=== PATIENT | male | born 1945 | race Caucasian/White ===

== ENCOUNTER 2017-08-22 06:25 | Emergency (ER) | payer OTHER ==
[~2017-08-22] VITALS: Ht 170.2 cm; Wt 153.2 kg
[2017-08-22 06:30] VITALS: BP 142/87; PULSE 81; RESP 16; TEMP 97.7; O2SAT 99
[2017-08-22] MEDS ORDERED: LISI10TA3 PO (06:36)
[2017-08-22] MEDS ORDERED: LIDOCAINE HCL 1% 50 ML VIAL INFIL ONE (07:30)
[2017-08-22] MEDS ORDERED: SULFAMETHOXAZOLE-TRIMETHOPRIM DS 800-160 MG TAB PO ONE (07:30)
[2017-08-22] MEDS ORDERED: LIDOCAINE HCL 2% 50 ML VIAL ONE (07:38)
[2017-08-22] MEDS ORDERED: BACT800T5 PO (07:44)
[2017-08-22] MEDS ORDERED: IBUP-232 PO (07:44)
[2017-08-22] MEDS ORDERED: LIDOCAINE HCL 2% 50 ML VIAL INFIL ONE (07:45)
--- NOTE | 2017-08-22 07:58 | PD ---
HPI Chief Complaint: Skin Problem Time Seen by Provider: 07:25 Travel History International Travel<30 days: No Contact w/Intl Traveler<30days: No Traveled to known affect area: No History of Present Illness HPI pt is a 71 y.o male who presents to the ED with a cc of spider bite on L index finger. Pt states that about 4 days ago he noticed a bite on his L index finger. Pt kept on scratching the area because of moderate itching. The following day redness and edema around around the area of "bite" started. that night he noticed a tactile fever that was not associated with n/v. The day after purulent fluid drained from the center of the "area of redness". pt reports previous hx of cellulitis about a year ago that started after what he perceived to be an inset bite. Denies any decrease in ROM of L index finger or decrease sensation. Also denies hx of diabetes. Modifying Factors: None Associated Signs & Symptoms: Left index finger infection, possible insect bite Risk Factors: None History Past Medical History Tetanus Vaccination: < 5 Years Influenza Vaccination: No Past Surgical History Surgical History: No Previous Surgery Social History Alcohol Use: No Tobacco Use: No Allergies-Medications (Allergen,Severity, Reaction): Coded Allergies: No Known Drug Allergies (Verified Allergy, Unknown, 08/22/17) Reported Meds & Prescriptions Reported Meds & Active Scripts Active Ibuprofen 600 Mg Tab 600 Mg PO Q6H PRN Bactrim DS (Sulfamethoxazole-Trimethoprim) 800-160 Mg Tab 1 Tab PO BID Reported Lisinopril 10 Mg Tab 10 Mg PO DAILY Review of Systems Except as stated in HPI: all other systems reviewed are Neg Physical Exam Narrative GENERAL: Well-developed elderly white male patient currently in mild distress. Awake and oriented 3. SKIN: Warm and dry. there is a 2/5 cm area of erythema with induration. there is mild serosanguineous fluid at the center of the wound. EYES: Pupils equal and round. No scleral icterus. No injection or drainage. ENT: No nasal bleeding or discharge. Mucous membranes pink and moist. NECK: Trachea midline. No JVD. CARDIOVASCULAR: Regular rate and rhythm. RESPIRATORY: No accessory muscle use. Clear to auscultation. Breath sounds equal bilaterally. GASTROINTESTINAL: Abdomen soft, non-tender, nondistended. Hepatic and splenic margins not palpable. MUSCULOSKELETAL: Extremities without clubbing, cyanosis, or edema. No obvious deformities. NEUROLOGICAL: Awake and alert. No obvious cranial nerve deficits. Motor grossly within normal limits. Five out of 5 muscle strength in the arms and legs. Normal speech. PSYCHIATRIC: Appropriate mood and affect; insight and judgment normal. Data Data Last Documented VS Vital Signs Date Time Temp Pulse Resp B/P (MAP) Pulse Ox O2 Delivery O2 Flow Rate FiO2 08/22/17 06:30 97.7 81 16 142/87 (105) 99 Orders Orders Sulfamet-Trimeth Ds 800-160 Mg (Bactrim (08/22/17 07:30) Lidocaine 1% Inj (50 Ml) (Xylocaine 1% I (08/22/17 07:30) Lidocaine 2% Inj (Xylocaine 2% Inj) (08/22/17 07:45) Lidocaine 2% Inj (Xylocaine 2% Inj) (08/22/17 07:38) Ed Discharge Order (08/22/17 07:45) MDM Medical Decision Making Medical Screen Exam Complete: Yes Emergency Medical Condition: Yes Differential Diagnosis Finger cellulitis versus abscess versus paronychia versus tenosynovitis Narrative Course On exam, there does not appear to be enough fluctuance, mostly just small amount of serosanguineous fluid drainage, and finger cellulitis. No signs of tenosynovitis, no tenderness on flexion and extension, no fullness in the flexor compartment. A small incision was made at area where there is already a opening where serosanguineous fluid was draining, no significant amount of pus was drained from this area. At this point, patient was given wound care instruction and antibiotics p.o. He should return tomorrow for wound check. Area of cellulitis was marked off. Plan was discussed with him and he states understanding. Procedures Procedure Narrative fter the risks and benefits were discussed the following procedure was performed : INCISION AND DRAINAGE OF ABSCESS: The area was prepped and was sterilely draped. A subcutaneous wheal of [2] % Lidocaine with a total number [0.5] mL was used to anesthetize the area. The area was properly anesthetized. scalpel was used to make a [0.5] -cm incision across the area of the cellulitis. Sterile dressing applied. Diagnosis Primary Impression: Cellulitis, finger Med/Other Pt SpecificInfo: Prescription(s) given Scripts Ibuprofen (Ibuprofen) 600 Mg Tab 600 MG PO Q6H Y for Pain/Inflammation, #20 TAB 0 Refills Prov: George Altamirano MD 08/22/17 Sulfamethoxazole-Trimethoprim (Bactrim DS) 800-160 Mg Tab 1 TAB PO BID for Infection, #14 TAB 0 Refills Prov: George Altamirano MD 08/22/17 Disposition: 01 DISCHARGE HOME Condition: Stable George Altamirano MD August 22, 2017 07:58
== END 2017-08-22 07:57 | disposition home or self-care (01) ==
LOC: NEPE 06:25
DX: L03.012 Cellulitis of left finger (principal); R50.9 Fever, unspecified
CPT/HCPCS: 10060

== ENCOUNTER 2017-08-23 06:56 | Emergency (ER) | payer OTHER ==
[~2017-08-23 06:56] MED LIST: BACT800T5 PO; IBUP-232 PO; LISI10TA3 PO
[2017-08-23 07:16] VITALS: BP 133/63; PULSE 81; RESP 16; TEMP 98; O2SAT 98
--- NOTE | 2017-08-23 07:35 | PD ---
HPI Chief Complaint: Wound/Suture/Staple Re-Check Time Seen by Provider: 07:25 Travel History International Travel<30 days: No Contact w/Intl Traveler<30days: No Traveled to known affect area: No History of Present Illness HPI Patient is a 71 year old male who comes in for a recheck of his finger. He was seen yesterday for what he believed is a spider bite to his left index finger. There was a small area that was lanced and he was started on antibiotics. He says he feels like it is improving. Some of the redness has gone down and he says the finger is less "stiff." He denies any other complaints. Severity is mild. PFSH Past Medical History Cardiovascular Problems: Yes (HTN) Hypertension: Yes Influenza Vaccination: Yes Past Surgical History Surgical History: No Previous Surgery Social History Alcohol Use: No Tobacco Use: No Substance Use: No Allergies-Medications (Allergen,Severity, Reaction): Coded Allergies: No Known Drug Allergies (Verified Allergy, Unknown, 08/22/17) Reported Meds & Prescriptions Reported Meds & Active Scripts Active Ibuprofen 600 Mg Tab 600 Mg PO Q6H PRN Bactrim DS (Sulfamethoxazole-Trimethoprim) 800-160 Mg Tab 1 Tab PO BID Reported Lisinopril 10 Mg Tab 10 Mg PO DAILY Review of Systems General / Constitutional: No: Fever, Chills HENT: No: Headaches, Lightheadedness Cardiovascular: No: Chest Pain or Discomfort Respiratory: No: Shortness of Breath Gastrointestinal: No: Nausea, Vomiting Skin: Positive Lesions Neurologic: No: Weakness, Dizziness Physical Exam Narrative GENERAL: Awake and alert, in no acute distress. SKIN: Focused skin assessment warm/dry. Small area of erythema to the base of the left 2nd finger. No fluctuance or drainage. HEAD: Atraumatic. Normocephalic. EYES: Pupils equal and round. No scleral icterus. ENT: Mucous membranes pink and moist. CARDIOVASCULAR: Regular rate and rhythm. No murmur appreciated. RESPIRATORY: No accessory muscle use. Clear to auscultation. Breath sounds equal bilaterally. MUSCULOSKELETAL: No obvious deformities. No clubbing. No cyanosis. No edema. NEUROLOGICAL: Awake and alert. No obvious cranial nerve deficits. Motor grossly within normal limits. Normal speech. Data Data Last Documented VS Vital Signs Date Time Temp Pulse Resp B/P (MAP) Pulse Ox O2 Delivery O2 Flow Rate FiO2 5/20/18 07:16 98.0 81 16 133/63 (86) 98 MDM Medical Decision Making Medical Screen Exam Complete: Yes Emergency Medical Condition: Yes Medical Record Reviewed: Yes Differential Diagnosis cellulitis vs abscess vs insect bite Narrative Course Patient is a 71 year old male who comes in for a recheck of his finger. The infection seems to be improving per patient. The erythema has decreased per the marking on his finger. Patient advised to continue his antibiotics. Advised to keep the area clean and dry. Advised to return any time for any worsening symptoms. Diagnosis Primary Impression: Cellulitis, finger Qualified Codes: L03.012 - Cellulitis of left finger Patient Instructions: Cellulitis (ED), General Instructions Additional Instructions: Continue your antibiotics. Keep the area clean and dry. Return any time for any worsening symptoms. Disposition: 01 DISCHARGE HOME Condition: Stable Elizabeth Stevens MD August 23, 2017 07:35
== END 2017-08-23 07:45 | disposition home or self-care (01) ==
LOC: NEPE 06:56
DX: Z48.00 Encounter for change or removal of nonsurgical wound dressing (principal); L03.012 Cellulitis of left finger
CPT/HCPCS: 99281